=== PATIENT | female | born 1990 ===

== ENCOUNTER 2020-02-27 07:54 | Day surgery (SDC) | payer OTHER ==
[~2020-02-27 07:54] MED LIST: Lactated Ringers 1,000 ML IV SCH
--- NOTE | 2020-02-27 08:34 | PCM.PREANE ---
Preanesthetic Assessment - Anesthesia/Transfusion/Family Hx Anesthesia History: Prior Anesthesia Without Reaction Other Type of Anesthesia Reaction Comment: "I get nauseated with gas, but not general anesthesia" Family History of Anesthesia Reaction: No Transfusion History: No Prior Transfusion(s) Intubation History: Unknown - Review of Systems General: No Symptoms Pulmonary: No Symptoms Cardiovascular: No Symptoms Gastrointestinal: Abdominal Pain, Constipation, Hematochezia Neurological: No Symptoms Other: Reports: None - Physical Assessment Height: 6 ft 2 in Weight: 90.265 kg ASA Class: 2 Mental Status: Alert & Oriented x3 Airway Class: Mallampati = 1 Dentition: Reports: Normal Dentition Thyro-Mental Finger Breadths: 3 Mouth Opening Finger Breadths: 3 ROM/Head Extension: Full Lungs: Clear to Auscultation, Normal Respiratory Effort Cardiovascular: Regular Rate, Regular Rhythm - Allergies Allergies/Adverse Reactions: Allergies Allergy/AdvReac Type Severity Reaction Status Date / Time bee venom protein (honey bee) Allergy Swelling Verified 02/26/20 08:50 - Blood Blood Available: No - Anesthesia Plan Pre-Op Medication Ordered: None - Acknowledgements Anesthesia Type Planned: MAC Pt an Appropriate Candidate for the Planned Anesthesia: Yes Alternatives and Risks of Anesthesia Discussed w Pt/Guardian: Yes Pt/Guardian Understands and Agrees with Anesthesia Plan: Yes PreAnesthesia Questionnaire HEENT History: Reports: Allergic Rhinitis, Other (See Below) Other HEENT History: h/o TMJ problems, wears glasses Cardiovascular History: Reports: None Respiratory History: Reports: None Gastrointestinal History: Reports: Irritable Bowel Syndrome, Other (See Below) Other Gastrointestinal History: occasional heartburn Genitourinary History: Reports: None [employer] History: Reports: Endometriosis Musculoskeletal History: Reports: Back Pain, Chronic Neurological History: Reports: None Psychiatric History: Reports: Anxiety, Depression Endocrine/Metabolic History: Reports: None Hematologic History: Reports: None Immunologic History: Reports: None Oncologic (Cancer) History: Reports: None Dermatologic History: Reports: None - Past Surgical History Head Surgeries/Procedures: Reports: None HEENT Surgical History: Reports: None Respiratory Surgical History: Reports: None GI Surgical History: Reports: None Female Surgical History: Reports: Other (See Below) Other Female Surgeries/Procedures: laparoscopy for endometriosis Endocrine Surgical History: Reports: None Neurological Surgical History: Reports: None Musculoskeletal Surgical History: Reports: Arthroscopic Knee, Knee Replacement Other Musculoskeletal Surgeries/Procedures:: multiple left knee scopes (5), left TKA '16 Oncologic Surgical History: Reports: None Dermatological Surgical History: Reports: None - SUBSTANCE USE Smoking Status *Q: Never Smoker - HOME MEDS Home Medications: Home Meds DULoxetine HCl [Cymbalta] 2 tab PO DAILY 02/26/20 [History] Ferrous Sulfate [Iron] 325 mg PO DAILY 02/26/20 [History] Loratadine [Claritin] 10 mg PO DAILY 02/26/20 [History] Mupirocin Cream [Bactroban Crm] 1 applic TOP TID PRN 02/26/20 [History] buPROPion HCL [Wellbutrin Xl] 150 mg PO DAILY 02/26/20 [History] norethindrone-e.estradioL-iron [Microgestin Fe 1.5-30 Tab] 1 tab PO DAILY [History] - CURRENT (IN HOUSE) MEDS Current Meds: Current Medications Lactated Ringer's (Ringers, Lactated) 1,000 mls @ 125 mls/hr IV ASDIRECTED MIKE
[2020-02-27] MEDS ORDERED: Propofol 200 MG/20 ML SDV ONE ×3 (08:53→10:10)
[2020-02-27] MEDS ORDERED: Lidocaine 2% 5 ML SDV ONE (08:56)
[2020-02-27] MEDS ORDERED: Ampicillin 1 GM in Sodium Chloride 0.9% 50 ML IV ONE (09:30)
--- NOTE | 2020-02-27 10:27 | PCM.OPNOTE ---
- General Post-Op/Procedure Note Date of Surgery/Procedure: 02/27/20 Operative Procedure(s): egd w bx; colonoscopy w bx Findings: see [id number] Pre Op Diagnosis: BRBPR and gerd Post-Op Diagnosis: Same Anesthesia Technique: Moderate Sedation Primary Surgeon: Jesús Holt Pathology: egd bx. and random colon bx Complications: None Condition: Good
--- NOTE | 2020-02-27 10:46 | PCM.POSTAN ---
POST ANESTHESIA ASSESSMENT - MENTAL STATUS Mental Status: Alert, Oriented - VITAL SIGNS Vital Signs: Last Vital Signs Temp 36.8 C 02/27/20 08:59 Pulse 75 02/27/20 10:30 Resp 18 02/27/20 10:30 BP 103/58 L 02/27/20 10:30 Pulse Ox 100 02/27/20 10:30 - RESPIRATORY Respiratory Status: Respiratory Rate WNL, Airway Patent, O2 Saturation Stable - CARDIOVASCULAR CV Status: Pulse Rate WNL, Blood Pressure Stable - GASTROINTESTINAL GI Status: No Symptoms - PAIN Pain Score: 0 - POST OP HYDRATION Hydration Status: Adequate & Stable - OBSERVATIONS Free Text/Narrative:: No anesthesia problems.
--- NOTE | 2020-02-27 11:18 | PCM48HPAN ---
Post Anesthesia Note - EVALUATION WITHIN 48HRS OF ANESTHETIC Vital Signs in Normal Range: Yes Patient Participated in Evaluation: Yes Respiratory Function Stable: Yes Airway Patent: Yes Cardiovascular Function Stable: Yes Hydration Status Stable: Yes Pain Control Satisfactory: Yes Nausea and Vomiting Control Satisfactory: Yes Mental Status Recovered: Yes Vital Signs: Last Vital Signs Temp 36.8 C 02/27/20 08:59 Pulse 75 02/27/20 10:30 Resp 18 02/27/20 10:30 BP 103/58 L 02/27/20 10:30 Pulse Ox 100 02/27/20 10:30 - COMMENTS/OBSERVATIONS Free Text/Narrative:: No anesthesia problems
--- NOTE | 2020-02-27 15:28 | OR ---
SURGEON: Jesús Holt MD DATE OF PROCEDURE: 02/27/2020 PREOPERATIVE DIAGNOSES: Bright red blood per rectum and acid reflux. POSTOPERATIVE DIAGNOSES: Bright red blood per rectum and acid reflux. PROCEDURES PERFORMED: 1. Esophagogastroduodenoscopy with biopsy. 2. Colonoscopy with biopsy. DESCRIPTION OF PROCEDURE: EGD: The patient was taken to the endoscopy room, and with the LAUNDRY ASSISTANT, Diprivan was administered. A well-lubricated EGD scope was gently inserted through the oropharynx, down the esophagus, passing through the gastroesophageal junction, into the stomach. The mucosa was examined upon the passage. Any etiology will be noted. Once in the stomach, we continued to advance to the distal antrum, passed through the pylorus into the second portion of the duodenum. Again, the mucosa was examined for any abnormality and etiology. The scope was then retrieved back to the stomach and then retroflexed to look at the fundus of the stomach. If a biopsy was indicated, we will biopsy the antrum, body, and gastroesophageal junction. The air will be sucked out while the scope is retrieved to reduce the patient's discomfort. The patient tolerated the procedure well. There were no intraoperative complications. Dr. Holt was present through the whole procedure. Prior to surgery, a time-out had been called, the patient identified, procedure identified and antibiotic administered. The patient was taken to the endoscopy room. A time out was called, patient identified, and procedure identified. Diprivan was then administrated. Patient went from awake to sleep, hearing doctor talking or door closing is normal. Perineum inspection and digital examination were then performed. A well- lubricated colonoscope was gently inserted through the rectum, advanced past the rectosigmoid junction, the descending colon, splenic flexure, transverse colon, hepatic flexure, ascending colon, arrived to the cecum. Cecum was identified as dictated in the finding. Then the scope was carefully withdrawn while attention was paid to the mucosal surface for any abnormality. Air will be sucked out during the scope withdrawal. At the rectum, retroflexed to examine any rectal diseases, fistula or hemorrhoids. During mucosal examination, abnormality or polyp was noted; picture taken and biopsy performed. Patient tolerated procedure well. There were no intraoperative complications, and Dr. Holt was present throughout the whole procedure. FINDINGS: EGD findings: 1. The patient is easily sedated with LAUNDRY ASSISTANT and Diprivan, the patient is soundly snoring. 2. Oropharynx is normal in appearance and proximal esophagus is free of disease. Distal esophagus at GE junction at 40 shows a flame-like structure, mild, and with a little bit of skip lesion, but there is no blood or ulcer. Stomach rugae are normal in appearance. No bile. No food particle. No blood. No ulcer. Antrum is mildly inflamed. Duodenum is grossly normal. Retroflexed look at the fundus of stomach, there is no hiatal hernia. Biopsy done at antrum, body, GE junction at 40 and sucked out the gas while scope pulling out. Colonoscopy findings: 1. The patient is easily sedated with LAUNDRY ASSISTANT and Diprivan, the patient is soundly snoring. 2. Bowel prep is average to above average. No semi-formed stool. Some liquid stool and required irrigation. Colon rather straightforward. Cecum indicated by ileocecal fold, one-to-one indentation, appendiceal orifice. Light emittance is not observed. ScopeGuide is pointing south. Mucosa examined upon scope pulling out with some irrigation and random biopsy done on the colon for abdominal pain and rectal bleeding. The patient does not have diverticulosis, polyp, mass, growth, inflammation, stricture, ulceration, AV malformation, blood, or ulcer observed. There is no black stool. The patient has mild internal hemorrhoid and very mild external hemorrhoid. The patient would benefit from repeat colonoscopy 10 years from today or if clinically indicated otherwise or depending on the pathology report of the random biopsy. MOSES / ADELA /[id number]
== END 2020-02-27 11:29 | disposition home or self-care (01) ==
LOC: MW.SDS 07:54
PROVIDERS: ATTEND Surgery
DX: K29.50 Unspecified chronic gastritis without bleeding (principal); K64.4 Residual hemorrhoidal skin tags; K64.8 Other hemorrhoids; K21.9 Gastro-esophageal reflux disease without esophagitis; F41.9 Anxiety disorder, unspecified; F32.9 Major depressive disorder, single episode, unspecified; E66.3 Overweight; Z91.030 Bee allergy status; Z68.25 Body mass index [BMI] 25.0-25.9, adult; Z79.899 Other long term (current) drug therapy
CPT/HCPCS: 43239; 45380; 81025; J0290; J2001; J2704; J7050; J7120; 00813; 88305; 88312